=== PATIENT | female | born 2000 | race Caucasian/White ===

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

== ENCOUNTER 2022-08-31 14:41 | Emergency (ER) | payer OTHER, MEDICAID ==
[~2022-08-31] VITALS: Ht 152.4 cm; Wt 68.0 kg
[~2022-08-31 14:41] MED LIST changes: +DEPO-PROVER150 MG/ML IM
[2022-08-31 14:47] VITALS: BP 135/94
[2022-08-31 15:00] VITALS: BP 123/78
[2022-08-31 15:15] VITALS: BP 113/73
[2022-08-31 15:30] VITALS: BP 117/81
== END 2022-08-31 15:42 | disposition home or self-care (01) | DRG 179 ==
LOC: ED 14:41
DX: U07.1 COVID-19 (principal); J02.9 Acute pharyngitis, unspecified; R53.83 Other fatigue; R63.0 Anorexia